=== PATIENT | male | born 1955 | race Caucasian/White ===

== ENCOUNTER 2022-02-13 08:57 | Emergency (ER) | payer OTHER, SELFPAY ==
--- NOTE | ~2022-02-13 | CT_ITS ---
EXAMINATION: CT abdomen pelvis wo con DATE: 02/13/2022 09:33 INDICATION: Nephrolithiasis presenting with right groin pain, nausea and vomiting. TECHNIQUE: Computed tomography (CT) of the abdomen and pelvis was performed without intravenous contr ast. A couple dose [place] The dose-length product was 371.24 mGy-cm. COMPARISON: 08/04/2017 FINDINGS: Mild discoid atelectasis in the left lower lobe. Heart size is normal. No pericardial or pleural effu hany. Small sliding-type hiatal hernia. Multiple calcified gallstones in the dependent aspect of the normal-appearing gallbladder. Liver, pancreas and bilateral adrenal glands are normal. A few splenic calcifications consistent with old granulomatous disease. Bilateral renal cysts measuring up to 4.6 c m on the left and 4 cm on the right. No evident urolithiasis. Mild bilateral hydronephrosis, moderate bilateral perinephric stranding and moderate distention of the bladder likely related to chronic out let obstruction from the enlarged prostate which measures 5.4 x 4.8 cm. There are few scattered colon ic diverticula without adjacent inflammatory change to suggest diverticulitis. The small bowel and ap pendix are normal. No free intraperitoneal gas or fluid. No pathologically enlarged abdominal or pelv ic lymphadenopathy. Small fat-containing left inguinal hernia. Moderate lumbar spondylosis. Moderate bilateral hip osteoarthritis. Small bone island at the left femoral head. IMPRESSION: 1. Mild bilateral hydronephrosis and moderate distention bladder likely related to chronic outlet obs truction from the enlarged prostate. 2. Cholelithiasis. 3. Small sliding-type hiatal hernia. Reviewed, dictated and finalized at location A. IMPRESSION: 1. Mild bilateral hydronephrosis and moderate distention bladder likely related to chronic outlet obstruction from the enlarged prostate. 2. Cholelithiasis. 3. Small sliding-type hiatal hernia.
--- NOTE | ~2022-02-13 | US_ITS ---
EXAMINATION: US abdomen limited DATE: 02/13/2022 13:43 INDICATION: Psychosis. Cholelithiasis. TECHNIQUE: Multiple grayscale and Doppler ultrasound images of the abdomen were obtained. COMPARISON: None FINDINGS: Pancreas is normal. Liver has normal echogenicity and contour, with a smooth surface. No liver lesion identified. No intrahepatic biliary duct dilation suspected. Portal venous flow was seen in the hepa topetal, normal direction and has normal Doppler waveform. Multiple echogenic and shadowing mobile ga llstones in the dependent aspect of the otherwise normal-appearing gallbladder. No gallbladder wall t hickening. The common bile duct measures 2 mm, which is normal. Sonographic Vang sign was reported as negative by the line runner. The patient was reportedly on analgesics over which could decrease se nsitivity. IMPRESSION: 1. Cholelithiasis without biliary ductal dilation or findings to suggest acute cholecystitis. Reviewed, dictated and finalized at location A.
[2022-02-13 09:01] VITALS: BP 169/72; PULSE 75; RESP 14; TEMP 36.2; O2SAT 100
--- NOTE | 2022-02-13 09:15 | ED.GENADULT ---
HPI - General Adult General Chief complaint: Urogenital-Male <MARANDA Smith Last Filed: 02/13/22 17:29> Stated complaint: kidney stone? <MARANDA Smith Last Filed: 02/13/22 17:29> Time Seen by Provider: 02/13/22 09:04 <MARANDA Smith Last Filed: 02/13/22 17:29> History of Present Illness HPI narrative: Patient is a 66-year-old male with a history of a kidney stone in 2018 here for evaluation of right groin pain for the past day. Patient states the pain is intermittent in nature, is severe, and feels similar to previous kidney stones. He has had 2 episodes of vomiting nonbloody/nonbilious emesis. He also notes urinary retention for the past day, has no history of prostate issues. Denies hematuria, fevers, chills, back pain, chest pain, abdominal pain. <MARANDA Smith Last Filed: 02/13/22 17:29> Related Data Home medications: Home Medications Medication Instructions Recorded Confirmed phenobarbital 32.4 mg tablet mg 02/13/22 phenytoin sodium extended 100 mg mg PO 02/13/22 capsule <MARANDA Smith Last Filed: 02/13/22 17:29> Allergies/adverse reactions: Allergies Allergy/AdvReac Type Severity Reaction Status Date / Time No Known Allergies Allergy Verified 02/13/22 09:03 <MARANDA Smith Last Filed: 02/13/22 17:29> Review of Systems Review of Systems: Gen: Denies fevers or chills Eyes: Denies eye pain or visual change ENT: Denies congestion Respiratory: Denies shortness of breath or cough CV: Denies chest pain or palpitations GI: Reports vomiting and nausea. Denies abdominal pain diarrhea : Reports urinary retention and groin pain. Musculoskeletal: Denies back pain or muscle pain Neuro: Denies numbness, tingling, weakness or focal weakness Skin: Denies rash Except as documented, all other systems reviewed and negative <MARANDA Smith Filed: 02/13/22 17:29> Exam Narrative: APPEARANCE: Well appearing, no pain in distress, well-nourished. Head: Normocephalic and atraumatic. EYES: PERRLA/EOMI, conjunctivae clear NOSE: No nasal drainage EARS: External ear normal in appearance THROAT: Oropharynx is clear. Mucous membranes are moist. NECK: Supple. No adenopathy, no masses. RESPIRATORY: Airway patent, respirations nonlabored. Clear to auscultation bilaterally, no rales, rhonchi, wheezing. CARDIOVASCULAR: Regular rate and rhythm without murmurs, rubs, or gallops. ABDOMINAL: Suprapubic region is distended but nontender. Normoactive bowel sounds. No rebound tenderness or guarding. MUSCULOSKELETAL: No CVA tenderness. Extremities are warm and well-perfused. Moves all extremities well. No edema. NEURO: Normal speech. No focal neurologic deficits. SKIN: Skin is warm and dry. No rashes. PSYCHIATRIC: Normal affect/mood. <MARANDA Smith Last Filed: 02/13/22 17:29> Course FILAMENT WELDER/PA Physician Supervision For this patient encounter, I reviewed the FILAMENT WELDER or PA documentation, treatment plan, and medical decision making <Keron Chapin MD - Last Filed: 02/14/22 07:02> Vital Signs Vital signs: Vital Signs Temperature 97.1 F L 02/13/22 09:01 Pulse Rate 75 02/13/22 09:01 Respiratory Rate 14 02/13/22 09:01 Blood Pressure 169/72 H 02/13/22 09:01 Pulse Oximetry 100 02/13/22 09:01 Oxygen Delivery Room Air 02/13/22 09:01 Temperature 97.1 F L 02/13/22 09:51 Pulse Rate 91 02/13/22 14:30 Respiratory Rate 18 02/13/22 14:30 Blood Pressure 156/91 H 02/13/22 14:30 Pulse Oximetry 98 02/13/22 14:30 Oxygen Delivery Room Air 02/13/22 09:01 <Emilie Cabrera PA-C - Last Filed: 02/13/22 17:29> Vital Signs Temperature 97.1 F L 02/13/22 09:01 Pulse Rate 75 02/13/22 09:01 Respiratory Rate 14 02/13/22 09:01 Blood Pressure 169/72 H 02/13/22 09:01 Pulse Oximetry 100 02/13/22 09:01 Oxygen Delivery
[2022-02-13 09:19] LABS: Basophils Percent Auto 0.1 % (0.2-1.2); Hematocrit 49.4 % (42.0-52.0); Hemoglobin 16.8 g/dL (14.0-18.0); Immature Granulocyte Percent A 0.6 % (0-0.5); Lymphocytes Absolute Auto 0.64 K/mm3 (0.9-3.2); Lymphocytes Percent Auto 3.8 % (18.3-44.2); Mean Corpuscular Hemoglobin 32.8 pg (26-34); Mean Corpuscular Volume 96.5 fl (80-100); Mean Platelet Volume 8.9 fl (7.4-10.4); Monocytes Absolute Auto 0.9 K/mm3 (0.1-0.6); Monocytes Percent Auto 5.2 % (2.6-8.5); Neutrophils Absolute Auto 15.2 K/mm3 (1.3-6.7); Neutrophils Percent Auto 90.3 % (45.5-73.1); Platelet Count Result 205 k/mm3 (150-375); Red Blood Count 5.12 M/mm3 (4.6-6.20); Red Cell Distribution Width 12.6 % (11.5-14.5); White Blood Count 16.9 K/mm3 (4.5-10.0)
[2022-02-13] MEDS: ONDANSETRON INJ 4 MG/2 ML VIAL IV PUSH (09:21)
[2022-02-13] MEDS: MORPHINE SULFATE (*CRX) 4 MG/ML INJ IV PUSH (09:21)
[2022-02-13 09:28] LABS: Alanine Aminotransferase 31 U/L (6-50); Alkaline Phosphatase 130 U/L (38-126); Anion Gap 16 mmol/L (8-16); Aspartate Amino Transferase 29 U/L (17-59); Bilirubin,Total 1.1 mg/dL (0.2-1.3); Blood Urea Nitrogen 16 mg/dL (9-20); Calcium 9.1 mg/dL (8.4-10.2); Carbon Dioxide 23 mmol/L (22-30); Chloride 99 mmol/L (98-107); Estimated CRCL calculation 55 ml/min; Estimated Glomerular Filt Rate 55; Glucose 148 mg/dL (65-110); Potassium 3.8 mmol/L (3.4-5.0); Sodium 138 mmol/L (137-145)
[2022-02-13 09:51] VITALS: TEMP 36.2
--- NOTE | 2022-02-13 09:56 | PC.NURSE ---
Patient attempting to urinate for urine analysis.
[2022-02-13 10:48] LABS: Appearance Urine Clear (Clear); Bilirubin Urine Negative (Negative); Blood Urine 2+ (Negative); Color Urine Yellow (Yellow); Glucose Urine UA Negative (Negative); Ketones Urine 1+ mg/dL (Negative); Leukocyte Esterase Ur Negative LEU/UL (Negative); Nitrate Urine Negative (Negative); Protein Urine Negative (Negative); Urobilinogen Urine 0.2 mg/dL (<2.0); pH Urine 5.5 (5.0-9.0)
[2022-02-13 11:00] LABS: Add Urine Microscopic? YES; WBC Urine 0-3 /hpf (0-3)
[2022-02-13 11:01] LABS: Mucus Urine Moderate /lpf; Squamous Epithelial Cell Urine Occasional /hpf (Few)
[2022-02-13] MEDS: SODIUM CHLORIDE 0.9% IV 1,000 ML 999 ML IV CONT (11:19)
[2022-02-13 11:22] VITALS: BP 157/83; PULSE 98; RESP 16; O2SAT 98
--- NOTE | 2022-02-13 12:48 | PC.NURSE ---
Patient to ultrasound
[2022-02-13 14:30] VITALS: BP 156/91; PULSE 91; RESP 18; O2SAT 98
== END 2022-02-13 14:30 | disposition home or self-care (01) ==
PROVIDERS: Emergency Provider Emergency Medicine; PCP Family Medicine
DX: R33.9 Retention of urine, unspecified (principal); N13.30 Unspecified hydronephrosis; N40.0 Benign prostatic hyperplasia without lower urinary tract symptoms
CPT/HCPCS: 36415; 51702; 74176; 76705; 80053; 81001; 85025; 96361; 96374; 96375; 99284; J2270; J2405; J7030